=== PATIENT | male | born 1995 | race Caucasian/White ===

== ENCOUNTER 2016-08-16 18:17 | Emergency (ER) | payer BC ==
[2016-08-16 18:24] VITALS: BP 140/66
[2016-08-16] MEDS ORDERED: ONDANSETRON 4 MG TAB.RAPDIS PO ONE (18:37)
[2016-08-16] MEDS ORDERED: DICYCLOMINE HCL 20 MG TABLET PO ONE (18:37)
[2016-08-16] MEDS ORDERED: PROMETHAZINE HCL 25 MG TABLET PO ONE (19:10)
[2016-08-16] MEDS ORDERED: ONDANSETRON ODT 4 MG TAB (6 TAB/DSPK) PO PRN (19:16)
[2016-08-16] MEDS ORDERED: NORMAL SALINE 1000 ML 1,000 ML IV PRN (19:19)
[2016-08-16] MEDS ORDERED: KETOROLAC TROMETHAMINE INJ/PF 30 MG/1 ML SDV IV ONE ×2 (19:20→21:25)
[2016-08-16] MEDS ORDERED: ONDANSETRON HCL INJ/PF 4 MG/2 ML SDV IV ONE (19:20)
--- NOTE | 2016-08-16 19:24 | ER Document Report ---
ED Medical Screen (RME) - General Chief Complaint: Abdominal Pain Stated Complaint: VOMITING TRAVEL OUTSIDE OF THE [place] IN LAST 30 DAYS: No - HPI Notes: 08/16/16 19:22 Abdominal pain nausea vomiting patient was seen in RME more likely GI virus was given 8 mg of Zofran and was able to tolerate orals here in visit however at time of discharge patient began vomiting again. Will transition the patient to be seen the back IV fluids ordered with just a chem 7. Patient is James been given a Phenergan to go home with and a Zofran sixpack - Related Data Allergies/Adverse Reactions: No Known Allergies Allergy (Unverified 08/16/16 18:21) Past Medical History - Social History Chew tobacco use (# tins/day): No Frequency of alcohol use: None Drug Abuse: None Renal/ Medical History: Denies: Hx Peritoneal Dialysis Surgical Hx: Negative Review of Systems - Review of Systems Gastrointestinal: Nausea, Vomiting Physical Exam - Vital signs Vitals: Temp Pulse Resp BP Pulse Ox 97.5 F 62 18 140/66 H 98 08/16/16 18:21 08/16/16 18:21 08/16/16 18:21 08/16/16 18:21 08/16/16 18:21 - HEENT Head: Normocephalic Eyes: Normal Course - Vital Signs Vital signs: Temp Pulse Resp BP Pulse Ox 97.5 F 62 18 140/66 H 98 08/16/16 18:21 08/16/16 18:21 08/16/16 18:21 08/16/16 18:21 08/16/16 18:21 Doctor's Discharge - Discharge Prescriptions: Promethazine HCl [Phenergan 25 mg Tablet] 1 tab PO Q6H PRN #20 tablet PRN Reason:
--- NOTE | 2016-08-16 19:27 | ER Document Report ---
ED General - General Chief Complaint: Abdominal Pain Stated Complaint: VOMITING Mode of Arrival: Ambulatory Information source: Patient Notes: Patient presents emergency department with reports of nausea and vomiting for the past 4-5 days. He reports he vomited 8 times today with the last few times he noted blood in it. Patient complains of right upper quad and epigastric abdominal pain. Reports his symptoms started with a sore throat cough approximately a week ago. He took multiple over the counter medications for those symptoms. He reports history of reflux. Denies trauma. Denies fever diarrhea reports last bowel movement was yesterday and it was normal. TRAVEL OUTSIDE OF THE [place] IN LAST 30 DAYS: No - HPI Onset: Last week Onset/Duration: Persistent Quality of pain: Achy Severity: Moderate Pain Level: 4 Associated symptoms: Nausea, Vomiting Exacerbated by: Denies Relieved by: Denies Similar symptoms previously: No Recently seen / treated by doctor: No - Related Data Allergies/Adverse Reactions: No Known Allergies Allergy (Unverified 08/16/16 18:21) Past Medical History - General Information source: Patient - Social History Smoking Status: Never Smoker Cigarette use (# per day): No Chew tobacco use (# tins/day): No Frequency of alcohol use: None Drug Abuse: None Lives with: Friend Family History: Hypertension - Father, Malignancy - Mother Patient has suicidal ideation: No Patient has homicidal ideation: No Renal/ Medical History: Denies: Hx Peritoneal Dialysis GI Medical History: Reports: Hx Gastroesophageal Reflux Disease Surgical Hx: Negative Review of Systems - Review of Systems Notes: Review HPI for review of systems., All other systems negative Physical Exam - Vital signs Vitals: Temp Pulse Resp BP Pulse Ox 97.5 F 62 18 140/66 H 98 08/16/16 18:21 08/16/16 18:21 08/16/16 18:21 08/16/16 18:21 08/16/16 18:21 - Notes Notes: PHYSICAL EXAMINATION: GENERAL: Well-appearing and in no acute distress calm nontoxic looking HEAD: Atraumatic, normocephalic. EYES: Pupils equal round and reactive to light, extraocular movements intact, sclera anicteric, conjunctiva are normal. ENT: nares patent, oropharynx clear without exudates. Moist mucous membranes. NECK: Normal range of motion, supple without lymphadenopathy LUNGS: CTAB and equal. No wheezes rales or rhonchi. HEART: Regular rate and rhythm without murmurs ABDOMEN: Soft, RUQ, Epigastric tenderness. No guarding, no rebound BACK: Denies pain EXTREMITIES: Normal range of motion, no pitting edema. No cyanosis. NEUROLOGICAL: Cranial nerves grossly intact. Normal sensory/motor exams. PSYCH: Normal mood, normal affect. SKIN: Warm, Dry, normal turgor, no rashes or lesions noted Course - Re-evaluation Re-evalutation: 08/16/16 19:43 Patient updated on plan of care to include fluids and labs. He verbalized understanding. 08/16/16 20:23 Labs unremarkable, no further vomiting, will attempt by mouth fluids 08/16/16 21:26 Patient drinking by mouth fluids with no further vomiting. He still reports pain 4/5, right upper quad epigastric area. GB US ordered. 08/16/16 Patient looks good still no further vomiting holding down by mouth fluids. Patient was instructed on his ultrasound. He was also instructed on importance of follow-up with primary care provider. He was instructed to return to the emergency department she experienced increased pain vomiting. He verbalized understanding to all information. - Vital Signs Vital signs: Temp Pulse Resp BP Pulse Ox 97.5 F 62 18 140/66 H 98 08/16/16 18:21 08/16/16 18:21 08/16/16 18:21 08/16/16 18:21 08/16/16 18:21 - Laboratory Result Diagrams: 08/16/16 19:35 08/16/16 19:35 Laboratory results interpreted by me: 08/16/16 08/16/16 19:35 19:35 RBC 5.56 H MCHC 36.1 H Monocytes % 19.1 H Potassium 3.4 L Glucose 127 H - Diagnostic Test Radiology reviewed: Image reviewed, Reports reviewed - EXAM DESCRIPTION: U/S ABDOMEN LIMITED W/O DOP COMPLETED DATE/TIME: 08/16/2016 9:57 pm REASON FOR STUDY: 13-RUQ epigastric pain COMPARISON: None. TECHNIQUE: Dynamic and static grayscale images acquired of the right upper quadrant and recorded on PACS. Additional selected color Doppler and spectral images recorded. LIMITATIONS: Study limited due to acoustical interference from fat or from air in the bowel. FINDINGS: PANCREAS: Obscured. LIVER: Echotexture is coarse with increased echogenicity consistent with fatty infiltration. No masses. LIVER VASCULATURE: Normal directional flow of the main portal vein and hepatic veins. GALLBLADDER: No stones. Normal wall thickness. No pericholecystic fluid. ULTRASOUND-DETECTED LARES'S SIGN: Negative. INTRAHEPATIC DUCTS AND COMMON DUCT: CBD and intrahepatic ducts normal caliber. No filling defects. INFERIOR VENA CAVA: Normal flow. AORTA: No aneurysm. RIGHT KIDNEY: Normal size. Normal echogenicity. No solid or suspicious masses. No hydronephrosis. No calcifications. PERITONEAL CAVITY AND RIGHT PLEURAL SPACE: No ascites or effusions. OTHER: No other significant finding. TECHNICAL DOCUMENTATION: JOB ID: [id number] [employer]- All Rights Reserved US/U/S ABDOMEN LIMITED W/O DOP IMPRESSION: No acute findings. Fatty liver. Discharge - Discharge Clinical Impression: Abdominal pain, Nausea & vomiting, Elevated blood pressure reading, Fatty liver Condition: Stable Disposition: HOME, SELF-CARE Instructions: Abdominal Pain ([facility]), Antinausea Medication ([facility]), Vomiting ([facility]) , Toradol Injection ([facility]), Oral Narcotic Medication ([facility]) Additional Instructions: *You have been evaluated for abdominal pain, nausea/vomiting, fatty liver *Take medication as prescribed for nausea *Ensure adequate fluid intake as discussed to prevent dehydration *Follow up with a primary care provider within one week for recheck *Return to ED for worsening condition, changes, needs Monitor your blood pressure. Your blood pressure was elevated today. This may be because you were anxious, in pain or because you need medication. It is important to follow up with your primary care provider for full evaluation. Prescriptions: Promethazine HCl [Phenergan 25 mg Tablet] 25 - 50 mg PO ASDIR PRN #12 tablet PRN Reason: Forms: Elevated Blood Pressure, Return to Work
[2016-08-16 19:59] LABS: ABSOLUTE LYMPHOCYTES (AUTO) 1.1 10^3/uL (0.5-4.7); ABSOLUTE MONOCYTES (AUTO) 0.8 10^3/uL (0.1-1.4); ABSOLUTE NEUT (AUTO) 2.4 10^3/uL (1.7-8.2); BASOPHILS % (AUTO) 0.5 % (0-2); HEMATOCRIT 45.7 % (37.9-51.0); HEMOGLOBIN 16.5 g/dL (13.5-17.0); HGB HCT DIFFERENCE 3.8; LYMPHOCYTES % (AUTO) 25.4 % (13-45); MEAN CORPUSCULAR HEMOGLOBIN 29.7 pg (27.0-33.4); MEAN CORPUSCULAR HGB CONC 36.1 g/dL (32.0-36.0); MEAN CORPUSCULAR VOLUME 82 fl (80-97); MONOCYTES % (AUTO) 19.1 % (3-13); RED BLOOD COUNT 5.56 10^6/uL (4.35-5.55); RED CELL DISTRIBUTION WIDTH 13.3 % (11.5-14.0); WHITE BLOOD COUNT 4.3 10^3/uL (4.0-10.5)
[2016-08-16 20:06] LABS: ANION GAP 16 (5-19); BLOOD UREA NITROGEN 13 mg/dL (7-20); CALCIUM 9.4 mg/dL (8.4-10.2); CARBON DIOXIDE 27 mmol/L (22-30); CHLORIDE 101 mmol/L (98-107); CREATININE RESULT 0.62 mg/dL (0.52-1.25); GLUCOSE 127 mg/dL (75-110); POTASSIUM 3.4 mmol/L (3.6-5.0); SODIUM 143.6 mmol/L (137-145)
[2016-08-16] MEDS ORDERED: HYDROCODONE/ACETAMINOPHEN 5-325 MG 6 TAB/DSPK PO PRN (22:17)
== END 2016-08-16 22:43 | disposition home or self-care (01) ==
LOC: ER 18:17
DX: K92.0 Hematemesis (principal); K76.0 Fatty (change of) liver, not elsewhere classified; R10.13 Epigastric pain; R10.11 Right upper quadrant pain; R03.0 Elevated blood-pressure reading, without diagnosis of hypertension; Z87.19 Personal history of other diseases of the digestive system
CPT/HCPCS: 99284; 96361; 96374; 96375; 36415; 83690; 85025; 80048; 76705; J3490; S0119; J1885; J2405; J7030